=== PATIENT | male | born 1985 | race American Indian/Alaskan Native ===

== ENCOUNTER 2020-07-17 19:10 | Observation (INO) | payer OTHER ==
--- NOTE | 2020-07-17 19:27 | EDM.PDOC ---
ED HPI GENERAL MEDICAL PROBLEM - General Chief Complaint: Abdominal Pain Stated Complaint: ABDOMINAL PAIN Time Seen by Provider: 07/17/20 19:27 - History of Present Illness INITIAL COMMENTS - FREE TEXT/NARRATIVE: 34-year-old male presents the emergency room with abdominal pain nausea and vomiting. Around midday today he had a grilled cheese sandwich and developed some abdominal pain. Later in the afternoon he had supper he had a hamburger covered with gravy this made things much worse the pain got worse and he developed some nausea and vomiting he is thrown up twice. Patient had a history of heartburn a couple years ago this got better with Tums and milk of mag. Patient denies any fevers or chills. He denies any significant past medical history. He is had no prior abdominal surgeries. Abdominal Pain Score (Numeric/FACES): 5 - Related Data Allergies Allergy/AdvReac Type Severity Reaction Status Date / Time Penicillins Allergy Hives Verified 07/17/20 19:20 Home Meds: Home Meds . [No Known Home Meds] 07/17/20 [History] Past Medical History - Past Health History Medical/Surgical History: Denies Medical/Surgical History Social & Family History - Tobacco Use Smoking Status *Q: Current Every Day Smoker Years of Tobacco use: 13 Packs/Tins Daily: 1 - Caffeine Use Caffeine Use: Reports: Soda - Recreational Drug Use Recreational Drug Use: No ED ROS GENERAL - Review of Systems Review Of Systems: See Below Constitutional: Reports: No Symptoms. Denies: Fever, Chills HEENT: Reports: No Symptoms Respiratory: Reports: No Symptoms Cardiovascular: Reports: No Symptoms Endocrine: Reports: No Symptoms GI/Abdominal: Reports: Abdominal Pain, Nausea, Vomiting. Denies: Constipation, Diarrhea : Reports: No Symptoms Musculoskeletal: Reports: No Symptoms Skin: Reports: No Symptoms Neurological: Reports: No Symptoms Psychiatric: Reports: No Symptoms Hematologic/Lymphatic: Reports: No Symptoms ED EXAM, GI/ABD - Physical Exam Exam: See Below Exam Limited By: No Limitations General Appearance: Alert, No Apparent Distress Head: Atraumatic, Normocephalic Neck: Normal Inspection, Supple, Non-Tender, Full Range of Motion Respiratory/Chest: No Respiratory Distress, Lungs Clear, Normal Breath Sounds Cardiovascular: Regular Rate, Rhythm, No Edema, No Murmur GI/Abdominal Exam: Normal Bowel Sounds, Soft, Other (Some epigastric tenderness with palpation no left upper quadrant discomfort and really no appreciable right upper quadrant discomfort.). No: Non-Tender, Guarding, Rigid, Rebound Course - Vital Signs Last Recorded V/S: Last Vital Signs Temp 35.8 C L 07/17/20 19:17 Pulse 87 07/17/20 19:17 Resp 20 07/17/20 19:17 BP 138/84 07/17/20 19:17 Pulse Ox 98 07/17/20 19:17 - Orders/Labs/Meds Orders: Active Orders 24 hr Category Date Time Status Abdomen Pelvis w Cont [CT] Stat Exams 07/17/20 21:33 Taken CORONAVIRUS COVID-19 SISSY [MOLEC] Stat Lab 07/17/20 23:44 Ordered HYDROmorphone [Dilaudid] Med 07/17/20 23:45 Once 1 mg IVPUSH ONETIME ONE Lactated Ringers [Ringers, Lactated] 1,000 ml Med 07/17/20 19:45 Active IV ASDIRECTED Medication Orders Lactated Ringer's (Ringers, Lactated) 1,000 mls @ 150 mls/hr IV ASDIRECTED JOSE Last Admin: 07/17/20 19:51 Dose: 150 mls/hr Documented by: DEANGELO Labs: Laboratory Tests 07/17/20 07/17/20 07/17/20 Range/Units 19:55 19:55 20:50 WBC 10.18 H (4.23-9.07) K/mm3 RBC 5.68 (4.63-6.08) M/mm3 Hgb 17.6 H (13.7-17.5) gm/dl Hct 52.5 H (40.1-51.0) % MCV 92.4 H (79.0-92.2) fl MCH 31.0 (25.7-32.2) pg MCHC 33.5 (32.2-35.5) g/dl RDW Std Deviation 49.7 H (35.1-43.9) fL Plt Count 214 (163-337) K/mm3 MPV 11.6 (9.4-12.3) fl Neut % (Auto) 64.2 (34.0-67.9) % Lymph % (Auto) 20.1 L (21.8-53.1) % [place] % (Auto) 11.4 (5.3-12.2) % Eos % (Auto) 3.8 (0.8-7.0) Baso % (Auto) 0.5 (0.1-1.2) % Neut # (Auto) 6.53 H (1.78-5.38) K/mm3 Lymph # (Auto) 2.05 (1.32-3.57) K/mm3 [place] # (Auto) 1.16 H (0.30-0.82) K/mm3 Eos # (Auto) 0.39 (0.04-0.54) K/mm3 Baso # (Auto) 0.05 (0.01-0.08) K/mm3 Manual Slide Review Normal smear Sodium 140 (136-145) mEq/L Potassium 3.6 (3.5-5.1) mEq/L Chloride 106 (98-107) mEq/L Carbon Dioxide 28 (21-32) mEq/L Anion Gap 9.6 (5-15) BUN 13 (7-18) mg/dL Creatinine 1.0 (0.7-1.3) mg/dL Est Cr Clr Drug Dosing 104.09 mL/min Estimated GFR (MDRD) > 60 (>60) mL/min BUN/Creatinine Ratio 13.0 L (14-18) Glucose 104 (74-106) mg/dL Calcium 8.7 (8.5-10.1) mg/dL Total Bilirubin 0.3 (0.2-1.0) mg/dL AST 22 (15-37) U/L ALT 48 (16-63) U/L Alkaline Phosphatase 110 (46-116) U/L Total Protein 7.4 (6.4-8.2) g/dl Albumin 3.5 (3.4-5.0) g/dl Globulin 3.9 gm/dL Albumin/Globulin Ratio 0.9 L (1-2) Lipase 99 (73-393) U/L Urine Color Dark yellow (Yellow) Urine Appearance Clear (Clear) Urine pH 5.5 (5.0-8.0) Ur Specific [place] > or = 1.030 (1.005-1.030) Urine Protein 2+ H (Negative) Urine Glucose (UA) Negative (Negative) Urine Ketones Trace H (Negative) Urine Occult Blood Negative (Negative) Urine Nitrite Negative (Negative) Urine Bilirubin 1+ H (Negative) Urine Urobilinogen 0.2 (0.2-1.0) Ur Leukocyte Esterase Negative (Negative) Urine RBC 0-5 (0-5) /hpf Urine WBC 0-5 (0-5) /hpf Ur Squamous Epith Cells 5-10 H (0-5) /hpf Urine Bacteria Rare (FEW) /hpf Urine Mucus Many H (FEW) /hpf Meds: Medications Generic Name Dose Route Start Last Admin Trade Name Mirtha PRN Reason Stop Dose Admin Lactated Ringer's 1,000 mls @ 150 mls/hr 07/17/20 19:45 07/17/20 19:51 Ringers, Lactated IV 150 mls/hr ASDIRECTED JOSE Administration Discontinued Medications Generic Name Dose Route Start Last Admin Trade Name Mirtha PRN Reason Stop Dose Admin Al Hydroxide/Mg Hydroxide 30 0 ml 07/17/20 19:38 07/17/20 20:01 ml/ Lidocaine HCl 15 ml PO 07/17/20 19:39 45 ml ONETIME ONE Administration Diatrizoate Meglum/Diatrizoate Sod 120 ml 07/17/20 23:01 07/17/20 23:29 Gastrografin 37% PO 07/17/20 23:02 120 ml ONETIME ONE Administration Fentanyl 100 mcg 07/17/20 20:27 07/17/20 20:39 Sublimaze IVPUSH 07/17/20 20:28 100 mcg ONETIME ONE Administration Fentanyl 100 mcg 07/17/20 21:31 07/17/20 21:33 Sublimaze IVPUSH 07/17/20 21:32 Not Given ONETIME ONE Hydromorphone HCl 0.5 mg 07/17/20 21:28 Dilaudid IVPUSH 07/17/20 21:29 ONETIME ONE Hydromorphone HCl 0.5 mg 07/17/20 21:32 07/17/20 21:47 Dilaudid IVPUSH 07/17/20 21:33 0.5 mg ONETIME ONE Administration Iopamidol 100 ml 07/17/20 23:02 07/17/20 23:29 Isovue-300 (61%) IVPUSH 07/17/20 23:03 100 ml ONETIME ONE Administration Ondansetron HCl 4 mg 07/17/20 19:38 07/17/20 19:51 Zofran IVPUSH 07/17/20 19:39 4 mg ONETIME ONE Administration Pantoprazole Sodium 40 mg 07/17/20 21:32 07/17/20 21:49 Protonix Iv IVPUSH 07/17/20 21:33 40 mg ONETIME ONE Administration Sodium Chloride 10 ml 07/17/20 23:02 07/17/20 23:29 Saline Flush FLUSH 07/17/20 23:03 10 ml ONETIME ONE Administration - Re-Assessments/Exams Free Text/Narrative Re-Assessment/Exam: 07/17/20 21:33 GI cocktail did not help may have made things worse. The fentanyl is worn off we will give him some Dilaudid labs reviewed nondiagnostic. We will proceed to CT of the abdomen and pelvis. 07/17/20 23:45 We had difficulty obtaining adequate pain control with this gentleman. Labs as stated above. CT shows cholelithiasis symptoms suggest biliary colic. He is afebrile but pain is difficult to control with him. Case discussed with Dr. Contreras, on-call surgeon we will admit the patient for pain control check an ultrasound and labs again in the morning keep him n.p.o. Departure - Departure Time of Disposition: 23:47 Disposition: Refer to Observation Clinical Impression: Biliary colic, Cholelithiasis - Discharge Information Forms: ED Department Discharge Sepsis Event Note (ED) - Evaluation Sepsis Screening Result: No Definite Risk - Focused Exam Vital Signs: Vital Signs Temp Pulse Resp BP Pulse Ox 07/17/20 19:17 35.8 C L 87 20 138/84 98 - My Orders Last 24 Hours: My Active Orders 07/17/20 19:45 Lactated Ringers [Ringers, Lactated] 1,000 ml IV ASDIRECTED 07/17/20 21:33 Abdomen Pelvis w Cont [CT] Stat 07/17/20 23:44 CORONAVIRUS COVID-19 SISSY [MOLEC] Stat 07/17/20 23:45 HYDROmorphone [Dilaudid] 1 mg IVPUSH ONETIME ONE - Assessment/Plan Last 24 Hours: My Active Orders 07/17/20 19:45 Lactated Ringers [Ringers, Lactated] 1,000 ml IV ASDIRECTED 07/17/20 21:33 Abdomen Pelvis w Cont [CT] Stat 07/17/20 23:44 CORONAVIRUS COVID-19 SISSY [MOLEC] Stat 07/17/20 23:45 HYDROmorphone [Dilaudid] 1 mg IVPUSH ONETIME ONE
[2020-07-17] MEDS ORDERED: Ondansetron 4 MG/2 ML SDV IVPUSH ONE (19:38)
[2020-07-17] MEDS ORDERED: Alum Hydrox/Mag Hydrox/Simeth 30 ML, Lidocaine 2% 15 ML PO ONE ×2 (19:38)
[2020-07-17] MEDS: Lactated Ringers 1,000 ML IV SCH (19:51)
[2020-07-17] MEDS ORDERED: fentaNYL 100 MCG/2 ML SDV IVPUSH ONE ×2 (20:27→21:31)
[2020-07-17] MEDS ORDERED: HYDROmorphone 0.5 MG/0.5 ML Syringe IVPUSH ONE ×2 (21:28→21:32)
[2020-07-17] MEDS ORDERED: Pantoprazole 40 MG Vial IVPUSH ONE (21:32)
[2020-07-17] MEDS ORDERED: Diatrizoate Meglumine/Diatrizoate Sodium 37% 120 ML Bottle PO ONE (23:01)
[2020-07-17] MEDS ORDERED: Sodium Chloride 0.9% 10 ML Syringe FLUSH ONE (23:02)
[2020-07-17] MEDS ORDERED: Iopamidol 612 MG/ML 100 ML Bottle IVPUSH ONE (23:02)
[2020-07-17] MEDS ORDERED: HYDROmorphone 1 MG/ML Syringe IVPUSH ONE (23:45)
[2020-07-18] MEDS ORDERED: Ondansetron 4 MG/2 ML SDV IVPUSH PRN ×3 (03:04→13:41)
[2020-07-18] MEDS ORDERED: Dextrose 5%-Lactated Ringers 1,000 ML IV SCH (03:15)
[2020-07-18] MEDS: HYDROmorphone 1 MG/ML Syringe IVPUSH PRN ×2 (03:24→08:45)
[2020-07-18] MEDS ORDERED: Ertapenem 1 GM in Sodium Chloride 0.9% 50 ML IV ONE (06:55)
--- NOTE | 2020-07-18 08:40 | US ---
Limited abdominal ultrasound: Multiple real-time images of the upper right abdomen were obtained. Comparison: Prior CT abdomen and pelvis study of 07/17/20. Gallbladder shows evidence of gallstones. Gallbladder wall is slightly thickened. No biliary duct dilatation is seen. Liver is echogenic suggesting the possibility of fatty infiltration. Right kidney shows no hydronephrosis or mass. Right kidney has a length of 10.6 cm. Pancreas is incompletely seen. Visualized portions of the pancreas appear within normal limits. Inferior vena cava and portal vein not well seen. Impression: 1. Gallstones with questionable gallbladder wall thickening. No biliary duct dilatation is seen. 2. Questionable fatty infiltration within the liver. 3. No additional abnormality is identified on right upper quadrant abdominal ultrasound study. Diagnostic code #3 This report was dictated in MDT
--- NOTE | 2020-07-18 09:00 | PCM.HP.2 ---
H&P History of Present Illness - General Date of Service: 07/18/20 Admit Problem/Dx: Admission Diagnosis/Problem Admission Diagnosis/Problem Cholelithiasis Source of Information: Patient History Limitations: Reports: No Limitations - History of Present Illness Initial Comments - Free Text/Narative: patient started having acute right upper quadrant abdominal pain soon after eating a cheese sandwitch yesterday. The pain woke him up from a nap. he tried to take Tums but pain did not dissipate. Pain was sharp, severe, located in the right upper quadrant and epigastrium. He presented to the ED where he has 2 episodes of emesis. He reports that he may have seen a little red in the last part of the 2nd emesis. in the ED, WBC was normal, CT showed cholelithiasis and mild gallbladder wall thickening. Patient was admitted overnight for pain control. At my evaluation this AM, he still has RUQ pain, did not sleep well. US revealed cholelithiasis and possible GB wall thickening and his WBC is 17 this AM. No signs of gastric or duodenal pathology on CT. Onset of Symptoms: Reports: Sudden Duration of Symptoms: Reports: Day(s): (1) Location: Reports: Abdomen Quality: Reports: Sharp Severity: Severe Improves with: Reports: Immobilization Worsens with: Reports: Eating, Movement Associated Symptoms: Reports: Nausea/Vomiting Abdominal Pain Score (Numeric/FACES): 8 - Related Data Allergies/Adverse Reactions: Allergies Allergy/AdvReac Type Severity Reaction Status Date / Time Penicillins Allergy Hives Verified 07/17/20 19:20 Home Medications: Home Meds . [No Known Home Meds] 07/17/20 [History] Past Medical History - Past Health History Medical/Surgical History: Denies Medical/Surgical History Social & Family History - Family History Family Medical History: Noncontributory - Tobacco Use Smoking Status *Q: Current Every Day Smoker Years of Tobacco use: 13 Packs/Tins Daily: 1 Second Hand Smoke Exposure: No - Caffeine Use Caffeine Use: Reports: None - Alcohol Use Date of Last Drink: 07/17/20 Time of Last Drink: 20:00 - Recreational Drug Use Recreational Drug Use: No H&P Review of Systems - Review of Systems: Review Of Systems: See Below General: Reports: No Symptoms HEENT: Reports: No Symptoms Pulmonary: Reports: No Symptoms Cardiovascular: Reports: No Symptoms Gastrointestinal: Reports: Abdominal Pain Genitourinary: Reports: No Symptoms Musculoskeletal: Reports: No Symptoms Skin: Reports: No Symptoms Psychiatric: Reports: No Symptoms Neurological: Reports: No Symptoms Hematologic/Lymphatic: Reports: No Symptoms Exam - Exam Exam: See Below - Vital Signs Vital Signs: Last Vital Signs Temp 97.9 F 07/18/20 03:29 Pulse 66 07/18/20 03:29 Resp 16 07/18/20 03:29 BP 119/80 07/18/20 03:29 Pulse Ox 97 07/18/20 08:25 Weight: 111.402 kg - Exam General: Alert, Oriented, Cooperative Lungs: Clear to Auscultation, Normal Respiratory Effort Cardiovascular: Regular Rate, Regular Rhythm, Normal S1, Normal S2 GI/Abdominal Exam: Normal Bowel Sounds, No Organomegaly, No Distention, No Mass, Tender (RUQ and epigastrium, positive puentes sign) - Patient Data Lab Results Last 24 hrs: Laboratory Results - last 24 hr 07/17/20 07/17/20 07/17/20 Range/Units 19:55 19:55 20:50 WBC 10.18 H (4.23-9.07) K/mm3 RBC 5.68 (4.63-6.08) M/mm3 Hgb 17.6 H (13.7-17.5) gm/dl Hct 52.5 H (40.1-51.0) % MCV 92.4 H (79.0-92.2) fl MCH 31.0 (25.7-32.2) pg MCHC 33.5 (32.2-35.5) g/dl RDW Std Deviation 49.7 H (35.1-43.9) fL Plt Count 214 (163-337) K/mm3 MPV 11.6 (9.4-12.3) fl Neut % (Auto) 64.2 (34.0-67.9) % Lymph % (Auto) 20.1 L (21.8-53.1) % [place] % (Auto) 11.4 (5.3-12.2) % Eos % (Auto) 3.8 (0.8-7.0) Baso % (Auto) 0.5 (0.1-1.2) % Neut # (Auto) 6.53 H (1.78-5.38) K/mm3 Lymph # (Auto) 2.05 (1.32-3.57) K/mm3 [place] # (Auto) 1.16 H (0.30-0.82) K/mm3 Eos # (Auto) 0.39 (0.04-0.54) K/mm3 Baso # (Auto) 0.05 (0.01-0.08) K/mm3 Manual Slide Review Normal smear Sodium 140 (136-145) mEq/L Potassium 3.6 (3.5-5.1) mEq/L Chloride 106 (98-107) mEq/L Carbon Dioxide 28 (21-32) mEq/L Anion Gap 9.6 (5-15) BUN 13 (7-18) mg/dL Creatinine 1.0 (0.7-1.3) mg/dL Est Cr Clr Drug Dosing 104.09 mL/min Estimated GFR (MDRD) > 60 (>60) mL/min BUN/Creatinine Ratio 13.0 L (14-18) Glucose 104 (74-106) mg/dL Calcium 8.7 (8.5-10.1) mg/dL Total Bilirubin 0.3 (0.2-1.0) mg/dL AST 22 (15-37) U/L ALT 48 (16-63) U/L Alkaline Phosphatase 110 (46-116) U/L Total Protein 7.4 (6.4-8.2) g/dl Albumin 3.5 (3.4-5.0) g/dl Globulin 3.9 gm/dL Albumin/Globulin Ratio 0.9 L (1-2) Lipase 99 (73-393) U/L Urine Color Dark yellow (Yellow) Urine Appearance Clear (Clear) Urine pH 5.5 (5.0-8.0) Ur Specific [place] > or = 1.030 (1.005-1.030) Urine Protein 2+ H (Negative) Urine Glucose (UA) Negative (Negative) Urine Ketones Trace H (Negative) Urine Occult Blood Negative (Negative) Urine Nitrite Negative (Negative) Urine Bilirubin 1+ H (Negative) Urine Urobilinogen 0.2 (0.2-1.0) Ur Leukocyte Esterase Negative (Negative) Urine RBC 0-5 (0-5) /hpf Urine WBC 0-5 (0-5) /hpf Ur Squamous Epith Cells 5-10 H (0-5) /hpf Urine Bacteria Rare (FEW) /hpf Urine Mucus Many H (FEW) /hpf SARS Virus RNA (PCR) (NEGATIVE) 07/17/20 07/18/20 07/18/20 Range/Units 23:50 05:53 05:53 WBC 17.74 H (4.23-9.07) K/mm3 RBC 5.47 (4.63-6.08) M/mm3 Hgb 16.7 (13.7-17.5) gm/dl Hct 51.5 H (40.1-51.0) % MCV 94.1 H (79.0-92.2) fl MCH 30.5 (25.7-32.2) pg MCHC 32.4 (32.2-35.5) g/dl RDW Std Deviation 48.3 H (35.1-43.9) fL Plt Count 198 (163-337) K/mm3 MPV 11.6 (9.4-12.3) fl Neut % (Auto) 85.2 H (34.0-67.9) % Lymph % (Auto) 7.4 L (21.8-53.1) % [place] % (Auto) 6.8 (5.3-12.2) % Eos % (Auto) 0.1 L (0.8-7.0) Baso % (Auto) 0.2 (0.1-1.2) % Neut # (Auto) 15.11 H (1.78-5.38) K/mm3 Lymph # (Auto) 1.32 (1.32-3.57) K/mm3 [place] # (Auto) 1.21 H (0.30-0.82) K/mm3 Eos # (Auto) 0.02 L (0.04-0.54) K/mm3 Baso # (Auto) 0.03 (0.01-0.08) K/mm3 Manual Slide Review Abnormal smear Sodium 139 (136-145) mEq/L Potassium 4.1 (3.5-5.1) mEq/L Chloride 103 (98-107) mEq/L Carbon Dioxide 28 (21-32) mEq/L Anion Gap 12.1 (5-15) BUN 7 (7-18) mg/dL Creatinine 0.8 (0.7-1.3) mg/dL Est Cr Clr Drug Dosing 130.11 mL/min Estimated GFR (MDRD) > 60 (>60) mL/min BUN/Creatinine Ratio 8.8 L (14-18) Glucose 143 H (74-106) mg/dL Calcium 8.2 L (8.5-10.1) mg/dL Total Bilirubin 0.4 (0.2-1.0) mg/dL AST 22 (15-37) U/L ALT 41 (16-63) U/L Alkaline Phosphatase 98 (46-116) U/L Total Protein 6.9 (6.4-8.2) g/dl Albumin 3.3 L (3.4-5.0) g/dl Globulin 3.6 gm/dL Albumin/Globulin Ratio 0.9 L (1-2) Lipase (73-393) U/L Urine Color (Yellow) Urine Appearance (Clear) Urine pH (5.0-8.0) Ur Specific [place] (1.005-1.030) Urine Protein (Negative) Urine Glucose (UA) (Negative) Urine Ketones (Negative) Urine Occult Blood (Negative) Urine Nitrite (Negative) Urine Bilirubin (Negative) Urine Urobilinogen (0.2-1.0) Ur Leukocyte Esterase (Negative) Urine RBC (0-5) /hpf Urine WBC (0-5) /hpf Ur Squamous Epith Cells (0-5) /hpf Urine Bacteria (FEW) /hpf Urine Mucus (FEW) /hpf SARS Virus RNA (PCR) Negative (NEGATIVE) Result Diagrams: 07/18/20 05:53 07/18/20 05:53 Sepsis Event Note - Evaluation Sepsis Screening Result: No Definite Risk - Focused Exam Vital Signs: Vital Signs Temp Pulse Pulse Resp BP BP Pulse Ox 07/18/20 08:25 07/18/20 03:29 97.9 F 66 16 119/80 95 07/18/20 01:19 97.7 F 54 L 16 133/86 92 L 07/18/20 00:26 51 L 20 110/66 95 Pulse Ox 07/18/20 08:25 97 07/18/20 03:29 07/18/20 01:19 07/18/20 00:26 Problem List Initiated/Reviewed/Updated: No Orders Last 24hrs: Active Orders 24 hr Category Date Time Status Admission Status [Patient Status] [ADT] Routine ADT 07/18/20 00:33 Active Bedrest Bathroom Privileges [RC] DAILY Care 07/18/20 03:04 Active Nothing Per Oral Diet [DIET] Diet 07/18/20 Breakfast Active Abdomen Pelvis w Cont [CT] Stat Exams 07/17/20 21:33 Taken Dextrose 5%-Lactated Ringers 1,000 ml Med 07/18/20 03:15 Active IV ASDIRECTED HYDROmorphone [Dilaudid] Med 07/18/20 03:04 Active 1 mg IVPUSH Q3H PRN Ondansetron [Zofran] Med 07/18/20 03:04 Active 4 mg IVPUSH Q4HR PRN Resuscitation Status Routine Resus Stat 07/18/20 03:04 Ordered Medication Orders Hydromorphone HCl (Dilaudid) 1 mg IVPUSH Q3H PRN PRN Reason: Pain Last Admin: 07/18/20 08:45 Dose: 1 mg Documented by: Admin: 07/18/20 03:24 Dose: 1 mg Documented by: DARYA Dextrose/Lactated Ringer's (Dextrose 5%-Lactated Ringers) 1,000 mls @ 125 mls/ hr IV ASDIRECTED JOSE Last Admin: 07/18/20 03:25 Dose: 125 mls/hr Documented by: DARYA Ondansetron HCl (Zofran) 4 mg IVPUSH Q4HR PRN PRN Reason: Nausea/Vomiting Assessment/Plan Comment:: Based on history, exam and imaging, I believe the patient has acute cholecy stitis. Ct has no signs of stomach or duodenal thickening or inflammation to suggest PUD. I recommended we proceed with laparoscopic cholecystectomy possible open. Risks, benefits and alternatives were discussed with the patient. Risks discussed include injury to adjacent structures, bleeding, infection, need for additional interventions. patient agrees with the procedure and informed consent was obtained.
[2020-07-18] MEDS ORDERED: Lidocaine 1% 4 ML ONE (10:10)
[2020-07-18] MEDS ORDERED: Propofol 200 MG/20 ML SDV ONE ×2 (10:10→11:32)
[2020-07-18] MEDS ORDERED: Rocuronium 50 MG/5 ML Vial ONE (10:10)
[2020-07-18] MEDS ORDERED: Midazolam 1 MG/ML 2 ML SDV ONE (10:11)
[2020-07-18] MEDS ORDERED: fentaNYL 250 MCG/5 ML SDV ONE (10:11)
[2020-07-18] MEDS ORDERED: Albuterol 0.083% 2.5 MG/3 ML Neb Soln NEB ONE (10:13)
--- NOTE | 2020-07-18 10:15 | PCM.PREANE ---
Preanesthetic Assessment - Procedure Proposed Procedure: Laparoscopic Cholecystectomy - Anesthesia/Transfusion/Family Hx Anesthesia History: No Prior Anesthesia Family History of Anesthesia Reaction: No Transfusion History: No Prior Transfusion(s) - Review of Systems General: No Symptoms Pulmonary: Other (Smoker 1 ppd. ) Cardiovascular: No Symptoms, Other (>4 MET capacity, has a home gym works out daily. Cardio and weight lifting. ) Gastrointestinal: Abdominal Pain Neurological: No Symptoms Other: Reports: None - Physical Assessment NPO Status Date: 07/17/20 NPO Status Time: 15:00 Vital Signs: Last Vital Signs Temp 36.6 C 07/18/20 03:29 Pulse 66 07/18/20 03:29 Resp 16 07/18/20 03:29 BP 119/80 07/18/20 03:29 Pulse Ox 97 07/18/20 08:25 Height: 1.75 m Weight: 111.402 kg ASA Class: 2 Mental Status: Alert & Oriented x3 Airway Class: Mallampati = 2 Dentition: Reports: Normal Dentition Thyro-Mental Finger Breadths: 3 Mouth Opening Finger Breadths: 3 ROM/Head Extension: Full Lungs: Clear to Auscultation, Normal Respiratory Effort Cardiovascular: Regular Rate, Regular Rhythm - Lab Values: Laboratory Last Values WBC 17.74 K/mm3 (4.23-9.07) H 07/18/20 05:53 RBC 5.47 M/mm3 (4.63-6.08) 07/18/20 05:53 Hgb 16.7 gm/dl (13.7-17.5) 07/18/20 05:53 Hct 51.5 % (40.1-51.0) H 07/18/20 05:53 MCV 94.1 fl (79.0-92.2) H 07/18/20 05:53 MCH 30.5 pg (25.7-32.2) 07/18/20 05:53 MCHC 32.4 g/dl (32.2-35.5) 07/18/20 05:53 RDW Std Deviation 48.3 fL (35.1-43.9) H 07/18/20 05:53 Plt Count 198 K/mm3 (163-337) 07/18/20 05:53 MPV 11.6 fl (9.4-12.3) 07/18/20 05:53 Neut % (Auto) 85.2 % (34.0-67.9) H 07/18/20 05:53 Lymph % (Auto) 7.4 % (21.8-53.1) L 07/18/20 05:53 Major % (Auto) 6.8 % (5.3-12.2) 07/18/20 05:53 Eos % (Auto) 0.1 (0.8-7.0) L 07/18/20 05:53 Baso % (Auto) 0.2 % (0.1-1.2) 07/18/20 05:53 Neut # (Auto) 15.11 K/mm3 (1.78-5.38) H 07/18/20 05:53 Lymph # (Auto) 1.32 K/mm3 (1.32-3.57) 07/18/20 05:53 Major # (Auto) 1.21 K/mm3 (0.30-0.82) H 07/18/20 05:53 Eos # (Auto) 0.02 K/mm3 (0.04-0.54) L 07/18/20 05:53 Baso # (Auto) 0.03 K/mm3 (0.01-0.08) 07/18/20 05:53 Manual Slide Review Abnormal smear 07/18/20 05:53 Sodium 139 mEq/L (136-145) 07/18/20 05:53 Potassium 4.1 mEq/L (3.5-5.1) 07/18/20 05:53 Chloride 103 mEq/L (98-107) 07/18/20 05:53 Carbon Dioxide 28 mEq/L (21-32) 07/18/20 05:53 Anion Gap 12.1 (5-15) 07/18/20 05:53 BUN 7 mg/dL (7-18) 07/18/20 05:53 Creatinine 0.8 mg/dL (0.7-1.3) 07/18/20 05:53 Est Cr Clr Drug Dosing 130.11 mL/min 07/18/20 05:53 Estimated GFR (MDRD) > 60 mL/min (>60) 07/18/20 05:53 BUN/Creatinine Ratio 8.8 (14-18) L 07/18/20 05:53 Glucose 143 mg/dL (74-106) H 07/18/20 05:53 Calcium 8.2 mg/dL (8.5-10.1) L 07/18/20 05:53 Total Bilirubin 0.4 mg/dL (0.2-1.0) 07/18/20 05:53 AST 22 U/L (15-37) 07/18/20 05:53 ALT 41 U/L (16-63) 07/18/20 05:53 Alkaline Phosphatase 98 U/L (46-116) 07/18/20 05:53 Total Protein 6.9 g/dl (6.4-8.2) 07/18/20 05:53 Albumin 3.3 g/dl (3.4-5.0) L 07/18/20 05:53 Globulin 3.6 gm/dL 07/18/20 05:53 Albumin/Globulin Ratio 0.9 (1-2) L 07/18/20 05:53 Lipase 99 U/L (73-393) 07/17/20 19:55 Urine Color Dark yellow (Yellow) 07/17/20 20:50 Urine Appearance Clear (Clear) 07/17/20 20:50 Urine pH 5.5 (5.0-8.0) 07/17/20 20:50 Ur Specific [place] > or = 1.030 (1.005-1.030) 07/17/20 20:50 Urine Protein 2+ (Negative) H 07/17/20 20:50 Urine Glucose (UA) Negative (Negative) 07/17/20 20:50 Urine Ketones Trace (Negative) H 07/17/20 20:50 Urine Occult Blood Negative (Negative) 07/17/20 20:50 Urine Nitrite Negative (Negative) 07/17/20 20:50 Urine Bilirubin 1+ (Negative) H 07/17/20 20:50 Urine Urobilinogen 0.2 (0.2-1.0) 07/17/20 20:50 Ur Leukocyte Esterase Negative (Negative) 07/17/20 20:50 Urine RBC 0-5 /hpf (0-5) 07/17/20 20:50 Urine WBC 0-5 /hpf (0-5) 07/17/20 20:50 Ur Squamous Epith Cells 5-10 /hpf (0-5) H 07/17/20 20:50 Urine Bacteria Rare /hpf (FEW) 07/17/20 20:50 Urine Mucus Many /hpf (FEW) H 07/17/20 20:50 SARS Virus RNA (PCR) Negative (NEGATIVE) 07/17/20 23:50 - Allergies Allergies/Adverse Reactions: Allergies Allergy/AdvReac Type Severity Reaction Status Date / Time Penicillins Allergy Hives Verified 07/17/20 19:20 - Anesthesia Plan Pre-Op Medication Ordered: Other (Albuterol Neb ) - Acknowledgements Anesthesia Type Planned: General Anesthesia Pt an Appropriate Candidate for the Planned Anesthesia: Yes Alternatives and Risks of Anesthesia Discussed w Pt/Guardian: Yes Pt/Guardian Understands and Agrees with Anesthesia Plan: Yes PreAnesthesia Questionnaire - Past Health History Medical/Surgical History: Denies Medical/Surgical History - SUBSTANCE USE Smoking Status *Q: Current Every Day Smoker Second Hand Smoke Exposure: No Date of Last Drink: 07/17/20 Time of Last Drink: 20:00 Recreational Drug Use History: No - HOME MEDS Home Medications: Home Meds . [No Known Home Meds] 07/17/20 [History] - CURRENT (IN HOUSE) MEDS Current Meds: Current Medications Hydromorphone HCl (Dilaudid) 1 mg IVPUSH Q3H PRN PRN Reason: Pain Last Admin: 07/18/20 08:45 Dose: 1 mg Documented by: Dextrose/Lactated Ringer's (Dextrose 5%-Lactated Ringers) 1,000 mls @ 125 mls/hr IV ASDIRECTED [facility] Last Admin: 07/18/20 03:25 Dose: 125 mls/hr Documented by: Ondansetron HCl (Zofran) 4 mg IVPUSH Q4HR PRN PRN Reason: Nausea/Vomiting Discontinued Medications Al Hydroxide/Mg Hydroxide 30 (ml/ Lidocaine HCl 15 ml) 0 ml PO ONETIME ONE Stop: 07/17/20 19:39 Last Admin: 07/17/20 20:01 Dose: 45 ml Documented by: Diatrizoate Meglum/Diatrizoate Sod (Gastrografin 37%) 120 ml PO ONETIME ONE Stop: 07/17/20 23:02 Last Admin: 07/17/20 23:29 Dose: 120 ml Documented by: Fentanyl (Sublimaze) 100 mcg IVPUSH ONETIME ONE Stop: 07/17/20 20:28 Last Admin: 07/17/20 20:39 Dose: 100 mcg Documented by: Fentanyl (Sublimaze) 100 mcg IVPUSH ONETIME ONE Stop: 07/17/20 21:32 Last Admin: 07/17/20 21:33 Dose: Not Given Documented by: Hydromorphone HCl (Dilaudid) 0.5 mg IVPUSH ONETIME ONE Stop: 07/17/20 21:29 Last Admin: 07/17/20 23:58 Dose: Not Given Documented by: Hydromorphone HCl (Dilaudid) 0.5 mg IVPUSH ONETIME ONE Stop: 07/17/20 21:33 Last Admin: 07/17/20 21:47 Dose: 0.5 mg Documented by: Hydromorphone HCl (Dilaudid) 1 mg IVPUSH ONETIME ONE Stop: 07/17/20 23:46 Last Admin: 07/17/20 23:58 Dose: 1 mg Documented by: Lactated Ringer's (Ringers, Lactated) 1,000 mls @ 150 mls/hr IV ASDIRECTED [facility] Last Admin: 07/17/20 19:51 Dose: 150 mls/hr Documented by: Ertapenem 1 gm/ Sodium (Chloride) 50 mls @ 100 mls/hr IV ONETIME ONE Stop: 07/18/20 07:24 Last Admin: 07/18/20 07:58 Dose: 100 mls/hr Documented by: Lidocaine HCl (Xylocaine-Mpf 1%) Confirm Administered Dose 4 mls @ as directed .ROUTE .STK-MED ONE Stop: 07/18/20 10:11 Iopamidol (Isovue-300 (61%)) 100 ml IVPUSH ONETIME ONE Stop: 07/17/20 23:03 Last Admin: 07/17/20 23:29 Dose: 100 ml Documented by: Ondansetron HCl (Zofran) 4 mg IVPUSH ONETIME ONE Stop: 07/17/20 19:39 Last Admin: 07/17/20 19:51 Dose: 4 mg Documented by: Pantoprazole Sodium (Protonix Iv) 40 mg IVPUSH ONETIME ONE Stop: 07/17/20 21:33 Last Admin: 07/17/20 21:49 Dose: 40 mg Documented by: Propofol (Diprivan 20 Ml) Confirm Administered Dose 200 mg .ROUTE .STK-MED ONE Stop: 07/18/20 10:11 Sodium Chloride (Saline Flush) 10 ml FLUSH ONETIME ONE Stop: 07/17/20 23:03 Last Admin: 07/17/20 23:29 Dose: 10 ml Documented by:
[2020-07-18] MEDS: Bupivacaine 0.5%/EPINEPHrine 1:200,000 50 ML MDV ONE ×2 (11:08→11:34)
[2020-07-18] MEDS ORDERED: Lactated Ringers 1,000 ML ONE (11:30)
[2020-07-18] MEDS ORDERED: HYDROmorphone 0.5 MG/0.5 ML Syringe ONE (11:35)
[2020-07-18] MEDS ORDERED: HYDROmorphone 0.5 MG/0.5 ML Syringe IVPUSH ONE (11:48)
[2020-07-18] MEDS ORDERED: fentaNYL 100 MCG/2 ML SDV IVPUSH PRN ×2 (11:48→13:41)
[2020-07-18] MEDS ORDERED: fentaNYL 100 MCG/2 ML SDV ONE ×2 (11:51→12:29)
[2020-07-18] MEDS ORDERED: Ondansetron 4 MG/2 ML SDV ONE (11:51)
--- NOTE | 2020-07-18 13:28 | CT ---
CT abdomen and pelvis Technique: Multiple axial sections were obtained from above the dome of the diaphragm inferiorly through the pubic symphysis. Intravenous contrast and oral contrast was utilized. Delayed images were also obtained to the bladder. Reconstructed coronal and sagittal images were obtained. Comparison: No prior abdominal imaging. Findings: Visualized lung bases show nothing acute. Liver contains no focal parenchymal abnormality. Gallstones are seen within the gallbladder. Spleen size is normal. Adrenal glands show no nodule. Pancreas is within normal limits. Kidneys show symmetric contrast enhancement without hydronephrosis or mass. Aorta shows no aneurysm. No retroperitoneal adenopathy or mesenteric abnormalities are seen. No pelvic mass or adenopathy is seen. No free fluid or inflammatory change is seen. Appendix is seen which is normal in size. Delayed images show contrast within both distal ureters as well as contrast within the bladder. Minimal fat-containing umbilical hernia is noted. Bone window settings were reviewed which show no acute osseous finding. Impression: 1. Gallstones. 2. No other acute abnormality is appreciated. Diagnostic code #3 This report was dictated in MDT I agree with preliminary report from [facility], finalized on 07/18/20, 12:26 AM Central Daylight Time
[2020-07-18] MEDS ORDERED: HYDROmorphone 0.5 MG/0.5 ML Syringe IVPUSH PRN (13:41)
--- NOTE | 2020-07-18 13:41 | PCM.POSTAN ---
POST ANESTHESIA ASSESSMENT - MENTAL STATUS Mental Status: Somnolent - VITAL SIGNS Vital Signs: Last Vital Signs Temp 97.9 F 07/18/20 03:29 Pulse 66 07/18/20 03:29 Resp 16 07/18/20 03:29 BP 119/80 07/18/20 03:29 Pulse Ox 97 07/18/20 10:13 1334 93 19 91% 99.2 108/65 - RESPIRATORY Respiratory Status: Respiratory Rate WNL, Airway Patent, O2 Saturation Stable, Supplemental Oxygen - CARDIOVASCULAR CV Status: Pulse Rate WNL, Blood Pressure Stable - GASTROINTESTINAL GI Status: No Symptoms - PAIN Pain Score: 0 - POST OP HYDRATION Hydration Status: Adequate & Stable
--- NOTE | 2020-07-18 14:07 | PCM48HPAN ---
Post Anesthesia Note - EVALUATION WITHIN 48HRS OF ANESTHETIC Vital Signs in Normal Range: Yes Patient Participated in Evaluation: Yes Respiratory Function Stable: Yes Airway Patent: Yes Cardiovascular Function Stable: Yes Hydration Status Stable: Yes Pain Control Satisfactory: Yes Nausea and Vomiting Control Satisfactory: Yes Mental Status Recovered: Yes Vital Signs: Last Vital Signs Temp 98.9 F 07/18/20 13:50 Pulse 83 07/18/20 13:50 Resp 07/18/20 13:50 BP 114/71 07/18/20 13:50 Pulse Ox 99 07/18/20 13:52 - COMMENTS/OBSERVATIONS Free Text/Narrative:: No anesthesia complications noted. Patient is being transferred to the [facility] floor for extended recovery.
[2020-07-18] MEDS: Lactated Ringers 1,000 ML IV SCH (14:16)
--- NOTE | 2020-07-18 14:56 | OR ---
DATE OF OPERATION: 07/18/2020 SURGEON: Brian Contreras MD PREOPERATIVE DIAGNOSIS: Acute cholecystitis. POSTOPERATIVE DIAGNOSIS: Acute cholecystitis. OPERATION PERFORMED: Laparoscopic cholecystectomy. ANESTHESIA: General endotracheal. ESTIMATED BLOOD LOSS: 200 mL. FINDINGS: Acute inflammation around the gallbladder and cholelithiasis. INDICATION AND CONSENT: Mr. Ledezma is a 34-year-old male who started having right upper quadrant pain acutely yesterday after having a cheese sandwich. Pain became progressively worse and the patient came to the emergency department where the white count was normal. CT scan showed possible thickening of the gallbladder, but this was unclear. The patient was admitted overnight and ultrasound was done in the morning that revealed possible gallbladder thickening. Due to his history and symptoms as well as imaging, I was suspicious for acute cholecystitis. Also, his white count this morning was 17. The patient also continued to have pain throughout the entire night. Due to this diagnosis, I recommended to proceed with laparoscopic cholecystectomy. We discussed risks, benefits, and alternatives, and informed consent was obtained. DESCRIPTION OF PROCEDURE: The patient was taken to the operating room, placed in supine position and padded appropriately. Invanz had already been given to the patient, therefore no additional antibiotics were needed. The patient's abdomen was prepped and draped in the usual sterile fashion after induction of anesthesia. Then, time- out was performed prior to the start of the procedure. Began the procedure by injecting 0.5% Marcaine with epinephrine in the infraumbilical position. Incision was made. The umbilical stalk was elevated and a Veress needle was inserted. The abdomen was insufflated to 15 mmHg. Then, a 12 mm VisiPort was placed under direct visualization with the laparoscope. A quick survey of the abdomen did not reveal any injuries. The abdomen did not have much space to work with due to the patient's truncal obesity. We placed 3 more additional 5 mm trocars, 1 in the subxiphoid area and 2 in the right subcostal. Then, we turned our attention to the right upper quadrant. There was some omentum draping on the gallbladder and the gallbladder was severely distended. We used a laparoscopic needle to aspirate some of the bile from the gallbladder. Then, the gallbladder was elevated cranially and began by removing the omentum that was stuck to the gallbladder. There was a lot of acute inflammation around the gallbladder. Therefore, there was continued oozing as we were doing the dissection in the gallbladder fossa. I eventually was able to skeletonize the cystic artery and then the cystic duct. These were clipped with 3 clips and transected such that 2 clips remained in situ. Then, the gallbladder was taken off the gallbladder fossa with cautery and placed in the EndoCatch bag. There was quite a bit of oozing due to the dissection. This was irrigated with 2 L of normal saline and aspirated. There were lot of stones in the gallbladder. Therefore, we attempted to remove the gallbladder through the umbilical incision. It was challenging and required extension of our incision through the fascia to be able to widen it to pass the specimen. The specimen had large collection of stones. Once the specimen was removed and passed off for pathology, we closed the fascia at the umbilical site with 0 Vicryl stitches and skin at all 4 incisions was closed with 4-0 Monocryl. This marked the end of the procedure. At the end of the procedure, all instruments, sharps, and sponges were counted and found to be correct x2. The patient was awoken from general anesthesia, extubated, and taken to the PACU in stable condition. The plan will be for the patient to possibly go home today. The patient will have to refrain from lifting more than 20 pounds for 4 weeks. I will see the patient in 2 weeks in clinic for postop check. JASPER /[id number]
[2020-07-18] MEDS ORDERED: oxyCODONE 5 MG Tab PO PRN (16:52)
== END 2020-07-18 20:57 | disposition home or self-care (01) ==
LOC: JD.ED 19:10 → JD.MS 07-18 00:41
PROVIDERS: ADMIT Surgery; ATTEND Surgery
DX: K80.00 Calculus of gallbladder with acute cholecystitis without obstruction (principal); F17.210 Nicotine dependence, cigarettes, uncomplicated; Z01.812 Encounter for preprocedural laboratory examination; Z20.828 Contact with and (suspected) exposure to other viral communicable diseases; Z88.0 Allergy status to penicillin
CPT/HCPCS: 36415; 47562; 74177; 76705; 80053; 81001; 83690; 85025; 87635; 94640; 96361; 96365; 96375; 96376; 99285; A9270; C9113; G0378; J1170; J1335; J2001; J2250; J2405; J2704; J3010; J3490; J7050; J7120; J7121; Q9963; Q9967; 00790; 96374; U0002